=== PATIENT | female | born 1975 | race Caucasian/White ===

== ENCOUNTER 2019-11-13 17:08 | Observation (INO) ==
[2019-11-13 19:23] LABS: Basophils % 0.4 % (0.1-2.0); Eosinophils # 0.1 K/mm3 (0.0-0.4); Eosinophils % 1.5 % (0.1-12.0); Hemoglobin 12.7 g/dL (12.2-16.2); Lymphocytes # 2.4 K/mm3 (0.7-4.5); Mean Corpuscular HGB Conc 33.5 g/dL (31.8-35.4); Mean Corpuscular Volume 94.9 fl (81-99); Mean Platelet Volume 10.6 fl (7.4-10.4); Monocytes # 0.5 K/mm3 (0.1-1.0); Monocytes % 7.9 % (1.7-9.3); Neutrophils # 3.5 K/mm3 (1.8-7.8); Neutrophils % 53.2 % (37.0-80.0); Platelet Count 124 K/mm3 (142-424); Red Cell Distribution Width 13.1 % (11.5-17.5); White Blood Count 6.6 K/mm3 (4.8-10.8)
[2019-11-13 19:32] LABS: Albumin Level 3.8 gm/dL (3.4-5.0); Albumin/Globulin Ratio 1.2 (1.1-1.8); Anion Gap 11.2 mEq/L (5-15); Bilirubin,Total 0.3 mg/dL (0.2-1.0); Globulin 3.2 gm/dl (1.3-3.2)
--- NOTE | 2019-11-13 19:43 | Emergency Department Note ---
ED Disposition Clinical Impression: Opiate overdose Disposition: Admitted As Inpatient Condition on Discharge: Serious Referrals: Vinh Lopez [Primary Care Provider] - Time of Disposition: 20:07 - Critical Care Critical Care Time: No Attestation: On 11/13/19, the high probability of a clinically significant, sudden or life threatening deterioration of the following system(s) required my full and direct attention, intervention and personal management. The time I documented below is in addition to time spent performing reported procedures but includes the following listed in this critical care notation. Medical Decision Making - Medical Records Medical records reviewed: Yes: I reviewed the patient's medical records. - Maurizio Inquiry Pt receiving controlled substance: No Vital Signs: 11/13/19 17:10 11/13/19 18:12 11/13/19 18:13 Temperature 98.4 F Temperature Source Oral Pulse Rate [Right Radial] 102 H 74 Respiratory Rate 36 H 14 Blood Pressure [Right Arm] 139/108 H 124/78 Blood Pressure Mean [Right Arm] 118 93 Blood Pressure Source [Right Arm] Automatic Cuff Blood Pressure Position [Right Arm] Sitting 02 Sat by Pulse Oximetry 93 L 100 100 Oxygen Delivery Method Nasal Cannula Nasal Cannula Oxygen Flow Rate (LPM) 2 2 - Lab Data Lab results reviewed: Yes: I reviewed the patient's lab results. Lab Results 11/13/19 18:20: WBC 6.6, RBC 4.00 L, Hgb 12.7, Hct 38.0, MCV 94.9, MCH 31.8 H, MCHC 33.5, RDW 13.1, Plt Count 124 L, MPV 10.6 H, Neut % (Auto) 53.2, Lymph % (Auto) 37.0, [place] % (Auto) 7.9, Eos % (Auto) 1.5, Baso % (Auto) 0.4, Neut # (Auto) 3.5, Lymph # (Auto) 2.4, [place] # (Auto) 0.5, Eos # (Auto) 0.1, Baso # (A uto) 0.0 11/13/19 18:20: Sodium 143, Potassium 4.2, Chloride 105, Carbon Dioxide 31, Anion Gap 11.2, BUN 13, Creatinine 0.80, Estimated Creat Clear 76, Estimated GFR 77, Est GFR ( Amer) 93, Glucose 72 L, Calcium 9.0, Total Bilirubin 0.3, AST 18, ALT 15, Alkaline Phosphatase 104, Total Protein 7.0, Albumin 3.8, Globulin 3.2, Albumin/Globulin Ratio 1.2 11/13/19 20:15: Urine Color Yellow, Urine Appearance Slightly cloudy, Urine pH 7.5, Ur Specific [place] 1.015, Urine Protein Negative, Urine Glucose (UA) Negative, Urine Ketones Negative, Urine Blood 2+, Urine Nitrate Positive, Urine Bilirubin Negative, Urine Urobilinogen 0.2, Ur Leukocyte Esterase Negative, Urine RBC 5-10, Urine WBC 10-20, Ur Squamous Epith Cells 5-10, Amorphous Sediment 2+, Urine Bacteria 4+, Urine Mucus 1+ 11/13/19 20:15: Urine Opiates Screen Positive H, Urine Methadone Screen Negative, Ur Barbituates Screen Negative, Ur Phencyclidine Scrn Negative, Ur Amphetamines Screen Negative, U Benzodiazepines Scrn Negative, Urine Cocaine Screen Negative, U Marijuana (THC) Screen Negative Result diagrams: 11/13/19 18:20 11/13/19 18:20 Orders (Tests/Meds): ED MEDICATIONS Generic Name Dose Route Start Last Admin Trade Name [place] PRN Reason Stop Dose Admin Sodium Chloride 10 ml 11/13/19 19:16 Sodium Chloride 0.9% 10ml Vial IV 12/13/19 19:15 NEEDED PRN to Dilute Lorazepam inj Discontinued Medications Generic Name Dose Route Start Last Admin Trade Name Freq PRN Reason Stop Dose Admin Lorazepam 1 mg 11/13/19 19:16 11/13/19 19:23 Ativan 2mg/Ml Vial IV 11/13/19 19:17 1 mg ONCE ONE Administration Meperidine HCl 50 mg 11/13/19 17:24 11/13/19 17:27 Meperidine 50mg/Ml 1ml Syringe IM 11/13/19 17:25 50 mg ONCE ONE Administration Naloxone HCl 0.4 mg 11/13/19 18:56 11/13/19 18:58 Narcan 2mg/2ml Syringe IV 11/13/19 18:57 0.4 mg ONCE ONE Administration Promethazine HCl 25 mg 11/13/19 17:24 11/13/19 17:27 Phenergan 25mg/Ml 1ml Vial IM 11/13/19 17:25 25 mg ONCE ONE Administration Sodium Chloride 25 ml 11/13/19 17:24 Sod Chlor 0.9% 25ml Bag IV 11/13/19 17:25 ONCE ONE ORDERS Category Date Time Status CT abdomen pelvis wo con Stat Cat Scan 11/13/19 17:26 Taken Urine Culture Stat Micro 11/13/19 20:15 Received EKG Request [ECG Request by /Marni] Stat Y 11/13/19 20:03 Ordered - CT Data CT Scan: Abdomen, Pelvis Time Received: 20:[address] Reviewed: Yes: I have viewed the radiologist's interpretation Preliminary Findings: Normal/NAD - Physician Consults Physician Consulted: Dr. Romero tongue carrier for unassigned service patient has out-of-town MD. Time: 20:50 Reason -: Admission Comment/Response: Patient to be admitted to ICU for opiate overdose. General Adult HPI - General Chief complaint: PAIN Stated complaint: kidney stones Time Seen by Provider: 11/13/19 17:10 Mode of Arrival: Wheelchair Source of Information: Patient, Relative Limitations: No Limitations Description of Symptoms (Recalled from ER Triage Doc. by RN): ppt is screaming in pain, daughter reports pt has had pain in left flank today, pt unable to talk - History of Present Illness HPI narrative: 84-year old female screaming in pain reports of flank pain and groin pain. After patient was medicated empty bottles of hydrocodone were found in her purse by her family. She has been taking hydrocodone before she got to the emergency department. A CT of the abdomen and pelvis was done to work-up the patient's acute pain and was negative. As it stands the patient is an opioid overdose. Onset (ago): unknown Severity: severe Consistency: constant Relieving factors: other (Narcan) Exacerbating factors: none - Related Data Allergies Allergy/AdvReac Type Severity Reaction Status Date / Time ASPIRIN Allergy Unknown Uncoded 10/30/17 15:17 From CIPRO Allergy Unknown Uncoded 10/30/17 15:17 PENICILLIN Allergy Unknown Uncoded 10/30/17 15:17 [facility] History - Hepatitis A Screen Drug use history?: No High risk sexual behaviors?: Yes History of sexually transmitted infection?: Yes Currently employed?: No Childcare worker?: No Do you have indoor plumbing?: Yes Do you have electricity?: Yes Attestation statement:: This patient has been screened for Hepatitis A risk factors. I have reviewed the patient's past medical history: Yes - Social History Smoking Status: Current every day smoker # Packs/Day (cigarettes): 1 Alcohol Intake: never Occupational Status: unemployed ROS Obtained: Yes Systems reviewed as appropriate & no additional complaints - Constitutional Constitutional: Reports system reviewed and no additional complaints, except as docu - Eyes Eyes: Reports system reviewed and no additional complaints, except as docu - ENT Ears, Nose, Mouth, and Throat: Reports system reviewed and no additional complaints, except as docu - Cardiovascular Cardiovascular: Reports system reviewed and no additional complaints, except as docu - Respiratory Respiratory: Yes system reviewed and no additional complaints, except as docu - Gastrointestinal Gastrointestingal: Reports: system reviewed and no additional complaints, except as docu - Genitourinary Female Genitourinary: Reports flank pain, Reports pelvic pain - Musculoskeletal Musculoskeletal: Reports system reviewed and no additional complaints, except as docu - Integumentary/Breasts Skin/Breast: Reports system reviewed and no additional complaints, except as docu - Neurologic Neurologic: Reports system reviewed and no additional complaints, except as docu - Endocrine Endocrine: Reports system reviewed and no additional complaints, except as docu - Hematologic/Lymphatic Henatologic/Lymphatic: Reports system reviewed and no additional complaints, except as docu - Allergic/Immunologic Allergic/Immunologic: Reports system reviewed and no additional complaints, except as docu Physical Exam - General General appearance: alert, in no apparent distress - Head Head exam: atraumatic, normocephalic, normal inspection - Eye Eye exam: Present: normal appearance, PERRL, EOMI - ENT ENT exam: Present: normal exam, normal oropharynx, mucous membranes moist, normal external ear exam - Neck Neck exam: Present: normal inspection, full ROM, trachea midline. Absent: meningismus, lymphadenopathy - Chest Chest inspection: Present: normal inspection, symmetric chest wall rise. Absent: tenderness - Respiratory Respiratory exam: Present: normal lung sounds bilaterally. Absent: respiratory distress - Cardiovascular Cardiovascular exam: Present: regular rate, normal rhythm. Absent: JVD - Abdominal Exam Abdominal exam: Present: soft, normal bowel sounds. Absent: distention, tenderness, guarding - Extremities Exam Extremities exam: Present: normal inspection, full ROM, normal capillary refill. Absent: calf tenderness - Back Exam Back exam: Present: normal inspection. Absent: tenderness - Neurological Exam Neurological exam: Present: alert, oriented X3, CN II-XII intact, normal gait. Absent: motor sensory deficit - Psychiatric Psychiatric exam: Present: agitated, anxious - Skin Skin exam: Present: warm, dry, intact, normal color
[2019-11-13 20:21] LABS: Microscopic, Urine URINE MICROSCOPIC (MICROSCOPIC)
[2019-11-13 20:26] LABS: Bilirubin,Urine Negative (Negative); Blood, Urine 2+ (Negative); Color,Urine YELLOW (Yellow); Glucose,Urine (UA) Negative (Negative); Ketones,Urine Negative (Negative); Leukocyte Esterase,Urine Negative (Negative); PH,Urine 7.5 (5.0-8.5); Protein,Urine Negative (Negative); Specific Gravity, Urine 1.015 (1.005-1.030); Urobilinogen,Urine 0.2 EU/dl (0.2)
[2019-11-13 20:29] LABS: Appearance,Urine Slightly Cloudy (Clear)
[2019-11-13 20:33] LABS: Amorphous Sediment,Urine 2+ /lpf; Bacteria,Urine 4+ /lpf; Mucus,Urine 1+ /lpf
[2019-11-13 20:35] LABS: Amphetamine/Metha Screen,Urine Negative ng/mL (<1000); Barbiturates Screen,Urine Negative ng/mL (<200); Benzodiazepines Screen,Urine Negative ng/mL (<200); Cannabinoid Screen,Urine Negative ng/mL (<50); Cocaine Screen,Urine Negative ng/mL (<300); Methadone Screen,Urine Negative ng/mL (<300); Opiate Screen,Urine Positive ng/mL (<300); Phencyclidine Screen,Urine Negative ng/mL (<25)
[2019-11-13 22:51] LABS: ABG Base Excess -0.6 mmol/L (-2.4-2.3); ABG HCO3 25.7 mmhg (22.0-26.0); ABG Oxygen Saturation 97 % (90-100); ABG PO2 106.1 mmhg (80-100); ABG TCO2 27.4 mmhg (23-27)
[2019-11-13 22:53] LABS: Oxygen 2L %
[2019-11-14 06:20] LABS: Basophils % 0.3 % (0.1-2.0); Eosinophils # 0.1 K/mm3 (0.0-0.4); Eosinophils % 1.1 % (0.1-12.0); Hematocrit 35.8 % (37.0-47.0); Hemoglobin 12.8 g/dL (12.2-16.2); Lymphocytes # 1.6 K/mm3 (0.7-4.5); Lymphocytes % 28.6 % (10-50); Mean Corpuscular HGB Conc 35.7 g/dL (31.8-35.4); Mean Corpuscular Volume 95.7 fl (81-99); Mean Platelet Volume 8.1 fl (7.4-10.4); Monocytes # 0.4 K/mm3 (0.1-1.0); Monocytes % 6.8 % (1.7-9.3); Neutrophils # 3.6 K/mm3 (1.8-7.8); Neutrophils % 63.3 % (37.0-80.0); Platelet Count 162 K/mm3 (142-424); Red Blood Count 3.74 M/mm3 (4.20-5.40); Red Cell Distribution Width 13.1 % (11.5-17.5); White Blood Count 5.7 K/mm3 (4.8-10.8)
[2019-11-14 06:29] LABS: Albumin/Globulin Ratio 1.1 (1.1-1.8); Anion Gap 9.8 mEq/L (5-15); Bilirubin,Total 0.4 mg/dL (0.2-1.0); Calcium 8.2 mg/dL (8.5-10.1); Chol/HDL Ratio 2.8 (1-3.5); Globulin 2.8 gm/dl (1.3-3.2); Phosphorous 3.1 mg/dL (2.4-4.9); Total Protein,Serum 5.8 gm/dL (6.4-8.2)
--- NOTE | 2019-11-14 08:22 | History & Physical Report ---
*Admission Date: 11/14/19 <Laurence Ruby 11/14/19 08:29> *Chief complaint: abdominal pain <Laurence Ruby 11/14/19 08:29> *History of present illness: Ms. Patiño is a 44-year-old female who apparently presented to the emergency room yesterday screaming in pain with reports of fl ank pain and groin pain. After the patient was medicated, empty bottles of hydrocodone were found in her purse by her family. It was felt she had been taking hydrocodone before she got to the emergency department. A CT of the abdomen pelvis was done to work-up the patient's acute pain and was negative. She was admitted for an opioid overdose. The patient is sedated and not responding this morning, therefore history was taken from the emergency room note. <Laurence Ruby 11/14/19 08:29> [facility] History I have reviewed the patient's past medical history: Yes (Medical History is unknown d/t patient's mental status) <Laurence Ruby 11/14/19 08:29> *Have you ever received a pneumonia vaccine?: No (unable to obtain) <Laurence Ruby 11/14/19 08:29> *Have you received a flu vaccine this season?: No (unable to obtain) <Laurence Ruby 11/14/19 08:29> Comment: Unknown <Laurence Ruby 11/14/19 08:29> - *Social History Smoking Status: Current every day smoker <Laurence Ruby 11/14/19 08:29> # Packs/Day (cigarettes): 30 <Laurence Ruby 11/14/19 08:29> Alcohol Intake: never <Laurence Ruby 11/14/19 08:29> *Occupational Status:: unemployed <Laurence Ruby 11/14/19 08:29> *Travel in the last 8 weeks: None <Laurence Ruby 11/14/19 08:29> Family Hx:: Unable to obtain <Laurence Ruby 11/14/19 08:29> Review of Systems - Review of Systems Review of systems:: unable to obtain <Laurence Ruby 11/14/19 08:29> Meds Allergies Allergy/AdvReac Type Severity Reaction Status Date / Time aspirin Allergy UNKNOWN Verified 11/14/19 08:45 ciprofloxacin [From Cipro] Allergy UNKNOWN Verified 11/14/19 08:45 Penicillins Allergy UNKNOWN Verified 11/14/19 08:45 <Farrukh Romero - 11/14/19 17:07> Exam Vital signs and Labs for Last 24 Hours: Temp Pulse Resp BP Pulse Ox 99.0 F 55 L 17 131/59 L 99 11/14/19 16:00 11/14/19 16:00 11/14/19 17:00 11/14/19 16:00 11/14/19 16:00 Laboratory Results - last 24 hr 11/13/19 18:20: WBC 6.6, RBC 4.00 L, Hgb 12.7, Hct 38.0, MCV 94.9, MCH 31.8 H, MCHC 33.5, RDW 13.1, Plt Count 124 L, MPV 10.6 H, Neut % (Auto) 53.2, Lymph % (Auto) 37.0, [place] % (Auto) 7.9, Eos % (Auto) 1.5, Baso % (Auto) 0.4, Neut # (Auto) 3.5, Lymph # (Auto) 2.4, [place] # (Auto) 0.5, Eos # (Auto) 0.1, Baso # (Auto) 0.0 11/13/19 18:20: Sodium 143, Potassium 4.2, Chloride 105, Carbon Dioxide 31, Anion Gap 11.2, BUN 13, Creatinine 0.80, Estimated Creat Clear 76, Estimated GFR 77, Est GFR ( Amer) 93, Glucose 72 L, Calcium 9.0, Total Bilirubin 0.3, AST 18, ALT 15, Alkaline Phosphatase 104, Total Protein 7.0, Albumin 3.8, Globulin 3.2, Albumin/Globulin Ratio 1.2 11/13/19 20:15: Urine Color Yellow, Urine Appearance Slightly cloudy, Urine pH 7.5, Ur Specific [place] 1.015, Urine Protein Negative, Urine Glucose (UA) Negative, Urine Ketones Negative, Urine Blood 2+, Urine Nitrate Positive, Urine Bilirubin Negative, Urine Urobilinogen 0.2, Ur Leukocyte Esterase Negative, Urine RBC 5-10, Urine WBC 10-20, Ur Squamous Epith Cells 5-10, Amorphous Sediment 2+, Urine Bacteria 4+, Urine Mucus 1+ 11/13/19 20:15: Urine Opiates Screen Positive H, Urine Methadone Screen Negative, Ur Barbituates Screen Negative, Ur Phencyclidine Scrn Negative, Ur Amphetamines Screen Negative, U Benzodiazepines Scrn Negative, Urine Cocaine Screen Negative, U Marijuana (THC) Screen Negative 11/13/19 22:49: O2 % 2l, ABG pH 7.30 L, ABG pCO2 53.0 H, ABG pO2 106.1 H, ABG HCO3 25.7, ABG Total CO2 27.4 H, ABG O2 Saturation 97, ABG Base Excess -0.6 11/14/19 05:27: WBC 5.7, RBC 3.74 L, Hgb 12.8, Hct 35.8 L, MCV 95.7, MCH 34.2 H, MCHC 35.7 H, RDW 13.1, Plt Count 162 D, MPV 8.1, Neut % (Auto) 63.3, Lymph % (Auto) 28.6, [place] % (Auto) 6.8, Eos % (Auto) 1.1, Baso % (Auto) 0.3, Neut # (Auto) 3.6, Lymph # (Auto) 1.6, [place] # (Auto) 0.4, Eos # (Auto) 0.1, Baso # (Auto) 0.0 11/14/19 05:27: Sodium 141, Potassium 3.8, Chloride 107, Carbon Dioxide 28, Anion Gap 9.8, BUN 10, Creatinine 0.59 D, Estimated Creat Clear 108, Estimated GFR 110, Est GFR ( Amer) 133 D, Glucose 94 D, Calcium 8.2 L, Phosphorus 3.1, Magnesium 1.9, Total Bilirubin 0.4, AST 16, ALT 13, Alkaline Phosphatase 90, Total Protein 5.8 L, Albumin 3.0 L D, Globulin 2.8, Albumin/Globulin Ratio 1.1, Triglycerides 39, Cholesterol 114 L, LDL Cholesterol 65, VLDL Cholesterol 8, HDL Cholesterol 41, Cholesterol/HDL Ratio 2.8 11/14/19 05:30: Phenytoin 2.1 L <HeatherFarrukh best - 11/14/19 17:07> Temp Pulse Resp BP Pulse Ox 98.2 F 75 18 105/68 L 97 11/14/19 08:00 11/14/19 08:00 11/14/19 08:00 11/14/19 08:00 11/14/19 08:00 Laboratory Results - last 24 hr 11/13/19 18:20: WBC 6.6, RBC 4.00 L, Hgb 12.7, Hct 38.0, MCV 94.9, MCH 31.8 H, MCHC 33.5, RDW 13.1, Plt Count 124 L, MPV 10.6 H, Neut % (Auto) 53.2, Lymph % (Auto) 37.0, [place] % (Auto) 7.9, Eos % (Auto) 1.5, Baso % (Auto) 0.4, Neut # (Auto) 3.5, Lymph # (Auto) 2.4, [place] # (Auto) 0.5, Eos # (Auto) 0.1, Baso # (Auto) 0.0 11/13/19 18:20: Sodium 143, Potassium 4.2, Chloride 105, Carbon Dioxide 31, Anion Gap 11.2, BUN 13, Creatinine 0.80, Estimated Creat Clear 76, Estimated GFR 77, Est GFR ( Amer) 93, Glucose 72 L, Calcium 9.0, Total Bilirubin 0.3, AST 18, ALT 15, Alkaline Phosphatase 104, Total Protein 7.0, Albumin 3.8, Globulin 3.2, Albumin/Globulin Ratio 1.2 11/13/19 20:15: Urine Color Yellow, Urine Appearance Slightly cloudy, Urine pH 7.5, Ur Specific [place] 1.015, Urine Protein Negative, Urine Glucose (UA) Negative, Urine Ketones Negative, Urine Blood 2+, Urine Nitrate Positive, Urine Bilirubin Negative, Urine Urobilinogen 0.2, Ur Leukocyte Esterase Negative, Urine RBC 5-10, Urine WBC 10-20, Ur Squamous Epith Cells 5-10, Amorphous Sediment 2+, Urine Bacteria 4+, Urine Mucus 1+ 11/13/19 20:15: Urine Opiates Screen Positive H, Urine Methadone Screen Negative, Ur Barbituates Screen Negative, Ur Phencyclidine Scrn Negative, Ur Amphetamines Screen Negative, U Benzodiazepines Scrn Negative, Urine Cocaine Screen Negative, U Marijuana (THC) Screen Negative 11/13/19 22:49: O2 % 2l, ABG pH 7.30 L, ABG pCO2 53.0 H, ABG pO2 106.1 H, ABG HCO3 25.7, ABG Total CO2 27.4 H, ABG O2 Saturation 97, ABG Base Excess -0.6 11/14/19 05:27: WBC 5.7, RBC 3.74 L, Hgb 12.8, Hct 35.8 L, MCV 95.7, MCH 34.2 H, MCHC 35.7 H, RDW 13.1, Plt Count 162 D, MPV 8.1, Neut % (Auto) 63.3, Lymph % (Auto) 28.6, [place] % (Auto) 6.8, Eos % (Auto) 1.1, Baso % (Auto) 0.3, Neut # (Auto) 3.6, Lymph # (Auto) 1.6, [place] # (Auto) 0.4, Eos # (Auto) 0.1, Baso # (Auto) 0.0 11/14/19 05:27: Sodium 141, Potassium 3.8, Chloride 107, Carbon Dioxide 28, Anion Gap 9.8, BUN 10, Creatinine 0.59 D, Estimated Creat Clear 108, Estimated GFR 110, Est GFR ( Amer) 133 D, Glucose 94 D, Calcium 8.2 L, Phosphorus 3.1, Magnesium 1.9, Total Bilirubin 0.4, AST 16, ALT 13, Alkaline Phosphatase 90, Total Protein 5.8 L, Albumin 3.0 L D, Globulin 2.8, Albumin/Globulin Ratio 1.1, Triglycerides 39, Cholesterol 114 L, LDL Cholesterol 65, VLDL Cholesterol 8, HDL Cholesterol 41, Cholesterol/HDL Ratio 2.8 <Laurence Ruby - 11/14/19 08:29> I & O for Last 24 hours: Intake & Output 11/12/19 11/13/19 11/14/19 11/15/19 11:59 11:59 11:59 11:59 Intake Total 120 / 120 Balance 120 / 120 Weight 126 lb 4 oz <Farrukh Romero - 11/14/19 17:07> Intake & Output 11/11/19 11/12/19 11/13/19 11/14/19 11:59 11:59 11:59 11:59 Weight 126 lb 4 oz <Laurence Ruby - 11/14/19 08:29> Microbiology Reports for the Last 24 Hours: Microbiology 11/13/19 20:15 Urine,Clean Catch Urine Culture - Preliminary Gram Negative Rods <Farrukh Romero - 11/14/19 17:07> - Constitutional Comments: Patient is unable to answer questions. She does respond to sternal rub and gets agitated with the BP cuff. <Laurence Ruby 11/14/19 08:29> - *Routine HEENT Exam Head: Present: normocephalic <Je Rubya 11/14/19 08:29> ENT: Present: mucous membranes dry <Je Rubya 11/14/19 08:29> - *Routine Neck Exam Present: supple. Absent: lymphadenopathy <Je Rubya 11/14/19 08:29> - *Routine Respiratory Exam Present: CTA bilaterally <MylesharleyLaurence 11/14/19 08:29> - *Routine Cardiovascular Exam Present: RRR <TungLaurence 11/14/19 08:29> - *Routine Abdominal Exam Present: soft, normoactive bowel sounds. Absent: tenderness <TungLaurence 11/14/19 08:29> - *Routine Extremities Exam Absent: cyanosis, clubbing, edema <Je Rubya 11/14/19 08:29> - *Routine Skin Exam Present: warm. Absent: rash <Je Rubya 11/14/19 08:29> Comments: scratches on the arms bilaterally <Je Rubya 11/14/19 08:29> - *Routine Neurological Exam Present: normal reflexes, altered mental status <Laurence Ruby 11/14/19 08:29> H&P: Result - Impressions Abd/pelvic CT - still pending <Laurence Ruby 11/14/19 08:29> Assessment and Plan (1) Opiate overdose Current visit: Yes Status: Acute Category: Medical Code(s): T40.601A - Poisoning by unspecified narcotics, accidental (unintentional), initial encounter <Laurence Ruby 11/14/19 08:19> (1) Opiate overdose Current visit: Yes Status: Acute Category: Medical Code(s): T40.601A - Poisoning by unspecified narcotics, accidental (unintentional), initial encounter <Farrukh Romero - 11/14/19 17:07> - Assessment and plan all Dx Assessment and Plan for all problems:: Patient seen and examined. Unable to give any history. Concur with above. Respiratory status is stable. Would not use any additonal Narcan at this point. Agree with starting antibiotics pending cultures. Staff will try to contact family for additional info/medical hx <Heather,Farrukh Yu - 11/14/19 17:07> Patient is being monitored on a one-to-one basis. Her heart rate has been stable. Her blood pressure has been low, as have her respirations. It appears based on her urinalysis that she has a urinary tract infection. Will discuss adding some antibiotics with Dr. Romero. We will continue to monitor. <Laurence Ruby - 11/14/19 08:29>
--- NOTE | 2019-11-14 08:26 | Pharmacy Consult Notes ---
[facility] Pharmacy VTE Monitoring - Patient Demographics Admission date: 11/13/19 Report Date: 11/14/19 Time: 08:25 Allergies/Adverse Reactions: Patient Allergies ASPIRIN Allergy (Unknown, Uncoded 10/30/17 15:17) From CIPRO Allergy (Unknown, Uncoded 10/30/17 15:17) PENICILLIN Allergy (Unknown, Uncoded 10/30/17 15:17) Height: 1.7 m Weight: 57.266 kg Patient Problems: Current Active Problems Opiate overdose (Acute) - VTE Risk Labs: VTE Related Lab Results Hgb 12.8 g/dL (12.2-16.2) 11/14/19 05:27 Hct 35.8 % (37.0-47.0) L 11/14/19 05:27 Plt Count 162 K/mm3 (142-424) D 11/14/19 05:27 BUN 10 mg/dL (7-18) 11/14/19 05:27 Creatinine 0.59 mg/dL (0.55-1.02) D 11/14/19 05:27 Estimated Creat Clear 108 mL/min (50-200) 11/14/19 05:27 Clinical Trial Participant: No - Prophylaxis VTE Prophylaxis Ordered?: Yes Types of VTE Prophylaxis: TEDS Knee High Location of Applied Device: Bilateral Lower Extremeties
--- NOTE | 2019-11-15 08:32 | Progress Note ---
<Laurence Ruby - Last Filed: 11/15/19 08:29> Internal Medicine - PN: Subj *Date: 11/15/19 *Time: 08:29 Interval history: The patient does open her eyes this morning and answer some questions. She states she had pain in her suprapubic area and this is what brought her into the emergency room. She recalls symptoms for approximately a week before admission and she did not go see her primary care doctor for the symptoms. She is still having some lower abdominal pain today. Apparently she has a history of DVT and seizures. Exam Vital signs and Labs for Last 24 Hours: Temp Pulse Resp BP Pulse Ox 98.2 F 62 16 121/76 98 11/15/19 07:56 11/15/19 07:56 11/15/19 07:56 11/15/19 07:56 11/15/19 07:56 Laboratory Results - last 24 hr 11/13/19 20:15: Urine Color Yellow, Urine Appearance Slightly cloudy, Urine pH 7.5, Ur Specific [place] 1.015, Urine Protein Negative, Urine Glucose (UA) Negative, Urine Ketones Negative, Urine Blood 2+, Urine Nitrate Positive, Urine Bilirubin Negative, Urine Urobilinogen 0.2, Ur Leukocyte Esterase Negative, Urine RBC 5-10, Urine WBC 10-20, Ur Squamous Epith Cells 5-10, Amorphous Sediment 2+, Urine Bacteria 4+, Urine Mucus 1+ 11/14/19 05:30: Phenytoin 2.1 L I & O for Last 24 hours: Intake & Output 11/12/19 11/13/19 11/14/19 11/15/19 11:59 11:59 11:59 11:59 Intake Total 1546 / 1546 Balance 1546 / 1546 Weight 126 lb 4 oz 120 lb 6 oz Microbiology Reports for the Last 24 Hours: Microbiology 11/13/19 20:15 Urine,Clean Catch Urine Culture - Final Escherichia coli - Constitutional no acute distress Comments: Falls asleep during questioning and exam - *Routine Respiratory Exam Present: CTA bilaterally - *Routine Cardiovascular Exam Present: RRR - *Routine Abdominal Exam Present: soft, normoactive bowel sounds, tenderness (in the suprapubic area) - *Routine Extremities Exam Absent: cyanosis, clubbing, edema - *Routine Skin Exam Present: warm. Absent: rash - *Routine Neurological Exam Wakes up and can answer some questions, still very tired Assessment and Plan (1) E. coli UTI Current visit: Yes Status: Acute Category: Medical Code(s): N39.0 - Urinary tract infection, site not specified; B96.20 - Unspecified Escherichia coli [E. coli] as the cause of diseases classified elsewhere (2) Opiate overdose Current visit: Yes Status: Acute Category: Medical Code(s): T40.601A - Poisoning by unspecified narcotics, accidental (unintentional), initial encounter (3) History of seizures Current visit: Yes Status: Acute Category: Medical Code(s): Z87.898 - Personal history of other specified conditions (4) History of DVT (deep vein thrombosis) Current visit: Yes Status: Acute Category: Medical Code(s): Z86.718 - Personal history of other venous thrombosis and embolism - Assessment and plan all Dx Assessment and Plan for all problems:: Patient's urine is positive for an E. coli UTI. It is sensitive to Rocephin. We will continue IV antibiotics. <Farrukh Romero - Last Filed: 11/15/19 09:54> Internal Medicine - PN: Subj *Date: 11/15/19 *Time: 09:50 Exam Vital signs and Labs for Last 24 Hours: Temp Pulse Resp BP Pulse Ox 98.2 F 62 16 121/76 98 11/15/19 07:56 11/15/19 07:56 11/15/19 07:56 11/15/19 07:56 11/15/19 07:56 Laboratory Results - last 24 hr 11/14/19 05:30: Phenytoin 2.1 L I & O for Last 24 hours: Intake & Output 11/12/19 11/13/19 11/14/19 11/15/19 11:59 11:59 11:59 11:59 Intake Total 1546 / 1546 Balance 1546 / 1546 Weight 126 lb 4 oz 120 lb 6 oz Microbiology Reports for the Last 24 Hours: Microbiology 11/13/19 20:15 Urine,Clean Catch Urine Culture - Final Escherichia coli Assessment and Plan (1) E. coli UTI Current visit: Yes Status: Acute Category: Medical Code(s): N39.0 - Urinary tract infection, site not specified; B96.20 - Unspecified Escherichia coli [E. coli] as the cause of diseases classified elsewhere (2) Opiate overdose Current visit: Yes Status: Acute Category: Medical Code(s): T40.601A - Poisoning by unspecified narcotics, accidental (unintentional), initial encounter (3) History of seizures Current visit: Yes Status: Acute Category: Medical Code(s): Z87.898 - Personal history of other specified conditions (4) History of DVT (deep vein thrombosis) Current visit: Yes Status: Acute Category: Medical Code(s): Z86.718 - Personal history of other venous thrombosis and embolism - Assessment and plan all Dx Assessment and Plan for all problems:: She is awake this morning and provides additional history. She is followed by Dr. Garcia in [facility] for seizure disorder, DVTs and chronic pain. She apparently was diagnosed with DVTs in her left thigh a few months ago and this has been treated with Lovenox injections. She states they tried oral medication but for some reason this did not work. States she takes morphine for chronic left hip pain related to, what sounds like avascular necrosis, by her description. Also states she takes oxycodone for chronic back pain. She complains of some low abdominal discomfort this morning. No nausea or vomiting. She has not eaten much stating she is not hungry. Urine culture is positive for ER which is pansensitive.
--- NOTE | 2019-11-16 22:20 | Discharge Summary ---
General - General Admission date:: 11/13/19 <Farrukh Romero - 11/23/19 08:16> 11/13/19 <Laurence Ruby - 11/16/19 22:22> Discharge date: 11/15/19 <Laurence Ruby - 11/16/19 22:22> HPI HPI: Ms. Patiño is a 44-year-old female who apparently presented to the emergency room yesterday screaming in pain with reports of flank pain and groin pain. After the patient was medicated, empty bottles of hydrocodone were found in her purse by her family. It was felt she had been taking hydrocodone before she got to the emergency department. A CT of the abdomen pelvis was done to wor k-up the patient's acute pain and was negative. She was admitted for an opioid overdose. The patient was sedated and not responding the am of H&P, therefore history was taken from the emergency room note. <Laurence Ruby - 11/16/19 22:22> Hospital Course Hospital Course: The patient had an abdominal pelvic CT showing constipation but nothing acute. She was admitted and monitored on a one-to-one basis. Her blood pressure and respirations had been low. Based on her urinalysis, it appeared she had a urinary tract infection, therefore she was started on some Rocephin. Dr. Romero did not feel she needed any further Narcan. She did begin to wake up and was able to answer some questions. She stated she had had suprapubic pain for a week prior to her emergency visit. She also described a history of DVT and seizures. Her family physician is Dr. Garcia in [place] and she sees him for seizure disorder, DVTs, and chronic pain. She was apparently receiving Lovenox injections for DVT in her left thigh. She also stated she took morphine for chronic hip pain related to what sounded like avascular necrosis. She took oxycodone for chronic pain. She was started on seizure medication in the hospital. Her urine culture came back for E. coli sensitive to Rocephin. The patient requested pain medication and ibuprofen was ordered. She was not satisfied with this and signed out AMA. <Laurence Ruby - 11/16/19 22:22> Objective Vital signs: Temp Pulse Resp BP Pulse Ox 98.2 F 4 L 16 121/76 98 11/15/19 07:56 11/15/19 08:00 11/15/19 07:56 11/15/19 07:56 11/15/19 07:56 <HeatherFarrukh Gigi - 11/23/19 08:16> Temp Pulse Resp BP Pulse Ox 98.2 F 4 L 16 121/76 98 11/15/19 07:56 11/15/19 08:00 11/15/19 07:56 11/15/19 07:56 11/15/19 07:56 <Laurence Ruby - 11/16/19 22:22> Narrative: - Constitutional no acute distress Comments: Falls asleep during questioning and exam - *Routine Respiratory Exam Present: CTA bilaterally - *Routine Cardiovascular Exam Present: RRR - *Routine Abdominal Exam Present: soft, normoactive bowel sounds, tenderness (in the suprapubic area) - *Routine Extremities Exam Absent: cyanosis, clubbing, edema - *Routine Skin Exam Present: warm. Absent: rash - *Routine Neurological Exam Wakes up and can answer some questions, still very tired <Laurence Ruby - 11/16/19 22:22> DS: Diagnosis - Discharge Diagnosis (1) E. coli UTI Status: Acute (2) Opiate overdose Status: Acute (3) History of seizures Status: Acute (4) History of DVT (deep vein thrombosis) Status: Acute <Laurence Ruby - 11/16/19 22:14> (1) E. coli UTI Status: Acute (2) Opiate overdose Status: Acute (3) History of seizures Status: Acute (4) History of DVT (deep vein thrombosis) Status: Acute <Farrukh Romero - 11/23/19 08:16> Discharge Plan - Patient Discharge Instructions Patient Instructions: Opioid Addiction, Prescription Drug Addiction, DI for Urinary Tract Infection (UTI), DI for Opioid Addiction, DI for Prescription Opioid Use, DI for Drug Overdose in Adults <Farrukh Romero - 11/23/19 08:16> Forms: <Farrukh Romero - 11/23/19 08:16> - Follow up Plan Follow up with: Vinh Lopez [Primary Care Provider] - <Farrukh Romero - 11/23/19 08:16> Disposition: Left Against Medical Advice <Farrukh Romero - 11/23/19 08:16> Home Medications: Home Medications Medication Instructions Recorded Confirmed Type Enoxaparin Sodium [Lovenox 60 mg SQ BID 11/14/19 11/14/19 History 60mg/0.6mL syringe] Gabapentin [Gabapentin 300mg Cap] 300 mg PO TID 11/14/19 11/14/19 History Morphine Sulfate [Morphine Sulfate 60 mg PO BID 11/14/19 11/14/19 History ER] Oxycodone HCl [Oxycodone 5mg tab 5 mg PO Q6HP PRN 11/14/19 11/14/19 History (IR)] Phenytoin Sodium Extended 100 mg PO BID 11/14/19 11/14/19 History [Dilantin] Temazepam [Restoril 15mg capsule] 15 mg PO HSP PRN 11/14/19 11/14/19 History <Farrukh Romero - 11/23/19 08:16> Prescriptions/Medication Reconciliation: No Action Oxycodone HCl [Oxycodone 5mg tab (IR)] 5 mg PO Q6HP PRN PRN Reason: PAIN Gabapentin [Gabapentin 300mg Cap] 300 mg PO TID Morphine Sulfate [Morphine Sulfate ER] 60 mg PO BID Temazepam [Restoril 15mg capsule] 15 mg PO HSP PRN PRN Reason: Sleep Phenytoin Sodium Extended [Dilantin] 100 mg PO BID Enoxaparin Sodium [Lovenox 60mg/0.6mL syringe] 60 mg SQ BID <Farrukh Romero - 11/23/19 08:16> - Problem Reconciliation Problems Reviewed?: Yes <Farrukh Romero - 11/23/19 08:16> Yes <Laurence Ruby - 11/16/19 22:22>
== END 2019-11-15 11:30 | disposition left against medical advice (07) | DRG 918 ==
LOC: ER 17:08 → 2ND 21:01 → INTOOBSV 21:47 → 2ND 11-14 17:36
PROVIDERS: ADMIT Family Medicine; ATTEND Family Medicine
CPT/HCPCS: 36415; 74176; 80053; 80061; 80185; 80305; 81001; 82803; 83735; 84100; 85025; 87086; 87088; 87186; 96365; 96375; 99284; G0378; J2310